=== PATIENT | male | born 1970 | race Caucasian/White ===

== ENCOUNTER 2019-11-28 09:48 | Outpatient (CLI) | payer BC, SELFPAY ==
--- NOTE | 2019-11-28 10:03 | EST_ITS ---
Patient Info Name: Uli Cruz Age: 49 years : 1970 Gender: Male Ht: 71 in Wt: 205 lbs BSA: 2.18 m2 Technical Quality: Good Exam Date: 11/28/2019 11:05 AM [facility] Patient Status: Outpatient Admit Date: 11/28/2019 Staff Ordering Physician: Gunjan Lopez Building Illuminating Engineer: Eli Reyes RDCS Attending Provider: GILDA CHIN DO Referring Physician: John NEVILLE; Exercise Technologist: Netta Mancilla RDCS Exercise Physician: Gilda Chin DO Exam Type: CA stress echo Study Info Indications - fatique Treadmill exercise stress echocardiogram is performed. Summary 1. 1. Negative Poncho exercise stress test for ischemic ST changes by ECG criteria. 2. 2. Good functional capacity, achieving 12 METs of workload. 3. 3. Appropriate HR response to exercise. 4. 4. Appropriate HR recovery at 1 minute post exercise. 5. 5. Negative stress echocardiogram for ischemia by wall motion analysis. 6. 6. Patient informed of the above results. Stress Echo Findings Left Ventricle Appropriate increase in LV endocardial thickening with systole. Appropriate augmentation of contractility with systole. No wall motion abnormality. Left Ventricle Normal LV systolic function, no wall motion abnormality. Protocol: Poncho Stress ECG Details Stage: REST Duration (min): 6 min : 9 sec Speed (mph): 0.0 Grade (%): 0 HR (bpm): 65 SBP (mmHg): 112 DBP (mmHg): 85 METS: --- Stage: REST Duration (min): 26 min : 48 sec Speed (mph): 0.0 Grade (%): 0 HR (bpm): 77 SBP (mmHg): 112 DBP (mmHg): 85 METS: --- Stage: STAGE 1 Duration (min): 1 min : 0 sec Speed (mph): 1.7 Grade (%): 10 HR (bpm): 94 SBP (mmHg): 112 DBP (mmHg): 85 METS: --- Stage: STAGE 1 Duration (min): 2 min : 0 sec Speed (mph): 1.7 Grade (%): 10 HR (bpm): 95 SBP (mmHg): 112 DBP (mmHg): 85 METS: --- Stage: STAGE 1 Duration (min): 3 min : 0 sec Speed (mph): 1.7 Grade (%): 10 HR (bpm): 94 SBP (mmHg): 135 DBP (mmHg): 77 METS: --- Stage: STAGE 2 Duration (min): 1 min : 0 sec Speed (mph): 2.5 Grade (%): 12 HR (bpm): 106 SBP (mmHg): 135 DBP (mmHg): 77 METS: --- Stage: STAGE 2 Duration (min): 2 min : 0 sec Speed (mph): 2.5 Grade (%): 12 HR (bpm): 110 SBP (mmHg): 156 DBP (mmHg): 77 METS: --- Stage: STAGE 2 Duration (min): 3 min : 0 sec Speed (mph): 2.5 Grade (%): 12 HR (bpm): 110 SBP (mmHg): 156 DBP (mmHg): 77 METS: --- Stage: STAGE 3 Duration (min): 1 min : 0 sec Speed (mph): 3.4 Grade (%): 14 HR (bpm): 124 SBP (mmHg): 140 DBP (mmHg): 86 METS: --- Stage: STAGE 3 Duration (min): 2 min : 0 sec Speed (mph): 3.4 Grade (%): 14 HR (bpm): 128 SBP (mmHg): 140 DBP (mmHg): 86 METS: --- Stage: STAGE 3 Duration (min): 3 min : 0 sec Speed (mph): 3.4 Grade (%): 14
== END 2019-11-28 09:49 | disposition home or self-care (01) ==
LOC: ANHCARD 09:51
PROVIDERS: PCP Internal Medicine; Visit Provider Nurse Practitioner
DX: R53.83 Other fatigue (principal)
CPT/HCPCS: 93351

== ENCOUNTER → 2020-08-20 00:52 | Outpatient (CLI) | payer BC, SELFPAY ==
[2020-08-20 21:02] LABS: SARS-CoV-2 RNA PCR Negative
== END ==
PROVIDERS: PCP Internal Medicine; Visit Provider Internal Medicine Gastroenterology
DX: Z01.812 Encounter for preprocedural laboratory examination (principal); Z20.822 Contact with and (suspected) exposure to COVID-19
CPT/HCPCS: C9803; U0003; U0005

== ENCOUNTER 2021-09-27 09:10 | Outpatient (CLI) | payer BC, SELFPAY ==
[2021-09-27 10:09] LABS: Alanine Aminotransferase 34 U/L (6-50); Albumin Level 5.1 g/dL (3.5-5.1); Alkaline Phosphatase 60 U/L (38-126); Anion Gap 10 mmol/L (8-16); Aspartate Amino Transferase 36 U/L (17-59); Blood Urea Nitrogen 16 mg/dL (9-20); Carbon Dioxide 25 mmol/L (22-30); Chloride 104 mmol/L (98-107); Cholesterol 224 mg/dL (0-200); Estimated Glomerular Filt Rate > 60; Glucose 99 mg/dL (65-110); HDL Direct 83 mg/dL; Sodium 139 mmol/L (137-145); Triglycerides 96 mg/dL (<150)
[2021-09-27 10:23] LABS: LDL Cholesterol Direct 103 mg/dL
[2021-09-27 10:40] LABS: Prostate Specific Antigen 0.7 ng/mL (< OR = 4.0)
[2021-09-30 10:16] LABS: Testosterone Total 271 ng/dL (250-1100)
== END 2021-09-27 09:11 | disposition home or self-care (01) ==
PROVIDERS: PCP Internal Medicine; Visit Provider Internal Medicine
DX: Z12.5 Encounter for screening for malignant neoplasm of prostate (principal); Z13.6 Encounter for screening for cardiovascular disorders; Z79.899 Other long term (current) drug therapy
CPT/HCPCS: 36415; 80053; 80061; 84153; 84403; G0103

== ENCOUNTER 2021-10-19 01:31 | Day surgery (SDC) | payer BC, SELFPAY ==
[2021-10-13 09:55] VITALS: BMI 29.2
[2021-10-19 06:21] VITALS: BP 114/80; PULSE 88; RESP 18; TEMP 36.5; O2SAT 98
[2021-10-19] MEDS: LACTATED RINGERS 1,000 ML 150 ML IV CONT (06:31)
--- NOTE | 2021-10-19 07:16 | WPDANESEPPF ---
Anes - Initial Pre Proc Eval Procedure: Operation Date: 10/19/21 07:30 Proposed Procedures p Screening Colonoscopy - Lucio Corona MD Date/Time: 10/19/21 07:16 Surgeon: Lucio Corona MD Pre Op Diagnosis: neoplasm screening Patient Data Age: 50 Gender: M Height: 1.8 m Weight: 94.2 kg Last Vital Signs Temp 36.5 C 10/19/21 06:21 Pulse 88 10/19/21 06:21 Resp 18 10/19/21 06:21 BP 114/80 10/19/21 06:21 Pulse Ox 98 10/19/21 06:21 O2 Del Method Room Air 10/19/21 06:21 Allergies Allergy/AdvReac Type Severity Reaction Status Date / Time No Known Allergies Allergy Verified 10/19/21 06:19 Home Medications Medication Instructions Recorded Confirmed Type bupropion HCl 300 mg 24 hr tablet, See Rx Instructions .Route 09/28/21 10/13/21 Rx extended release .COMPLEX #90 tabs naltrexone 50 mg tablet 50 mg PO DAILY #90 tabs 09/28/21 10/13/21 Rx testosterone cypionate 200 mg/mL 100 mg (0.5 mL) IM WEEKLY #10 mL 09/29/21 10/13/21 Rx intramuscular oil Patient hx anesthesia problems: none Family hx anesthesia problems: none Results Review: All pre-operative results and documents have been reviewed as part of the pre-operative evaluation. [facility] Past Medical History Medical History (Reviewed 09/28/21 @ 07:50 by Ramin Candelario [facility]) Acute pharyngitis Arthritis Biceps tendinitis Cyst of neck Depression Erectile dysfunction Erectile dysfunction Hearing loss Joint pain Left elbow pain On ferry terminal agent drug therapy On alf drug therapy Rash Screening for cardiovascular condition Sebaceous cyst Testicular hypofunction Surgical History Surgical History Hx of arthroscopy of knee Family History Family History Father Family history of heart disease in male family member before age 55 Other Arthritis Social History Social History Smoking status: Never smoker Alcohol intake: current Drinks per week: 6 Alcohol use details: Occasional Substance use: never Substance use type: does not use Living arrangements: alone Spiritual care concerns: No Anes - Eval Final PreProcedure Day of Procedure 10/19/21 07:16 Patient weight: overweight Heart: regular rate and rhythm Lungs: clear to auscultation and normal air movement Airway: Mallampati scale class II Neurological: alert and oriented Last oral intake: >/= 8 hours ASA classification: II Emergent: no Anesthetic plan: proceed Anesthesia type and monitoring: general GIVS Results Review: All pre-operative results and documents have been reviewed as part of the pre-operative evaluation. Informed Consent: The patient's anesthetic plan and its attendant risks and benefits were discussed with the patient/family/POA. Questions were solicited and answers provided to the satisfaction of the patient/family/POA.
--- NOTE | 2021-10-19 07:28 | PM.HPGS ---
History of Present Illness History of Present Illness Consent: Risks, benefits, and alternatives have been discussed and questions answered. Patient agrees to proceed with procedure. Chief complaint: neoplasm screening Narrative: Uli Cruz is a 50 year old male here for first screening colonoscopy Review of Systems Constitutional: Constitutional: Denies headache(s) and Denies weakness Eyes: Eyes: Denies blurry vision ENT: Reports Normal hearing present, Denies headache(s) and Denies neck pain Cardiovascular: Cardiovascular: Denies chest pain and Denies dyspnea Respiratory: Respiratory: Denies dyspnea Gastrointestinal: Gastrointestinal: Reports no additional gastrointestinal complaints Genitourinary: Genitourinary: Denies dysuria Musculoskeletal: Musculoskeletal: Denies neck pain Integumentary/Breasts: Skin/Breast: Denies dry skin Neurologic: Reports Normal hearing present, Denies headache(s) and Denies weakness Psychiatric: Psychiatric: Denies anxiety Endocrine: Endocrine: Denies change in body appearance Hematologic/Lymphatic: Hematologic/Lymphatic: Denies easy bleeding Allergic/Immunologic: Allergic/Immunologic: Denies urticaria PMFSH Past Medical History Medical History Acute pharyngitis Arthritis Biceps tendinitis Cyst of neck Depression Erectile dysfunction Erectile dysfunction Hearing loss Joint pain Left elbow pain On exterminator termite drug therapy On assisted drug therapy Rash Screening for cardiovascular condition Sebaceous cyst Testicular hypofunction Surgical History Surgical History Hx of arthroscopy of knee Family History Family History Father Family history of heart disease in male family member before age 55 Other Arthritis Social History Social History Smoking status: Never smoker Alcohol intake: current Drinks per week: 6 Alcohol use details: Occasional Substance use: never Substance use type: does not use Living arrangements: alone Spiritual care concerns: No Meds Home Medications and Allergies Home Medications Medication Instructions Recorded Confirmed Type bupropion HCl 300 mg 24 hr tablet, See Rx Instructions .Route 09/28/21 10/13/21 Rx extended release .COMPLEX #90 tabs naltrexone 50 mg tablet 50 mg PO DAILY #90 tabs 09/28/21 10/13/21 Rx testosterone cypionate 200 mg/mL 100 mg (0.5 mL) IM WEEKLY #10 mL 09/29/21 10/13/21 Rx intramuscular oil Allergies Allergy/AdvReac Type Severity Reaction Status Date / Time No Known Allergies Allergy Verified 10/19/21 06:19 Vital Signs Vital Signs - 24 hr 10/19/21 06:21 Temperature 97.7 F Pulse Rate 88 Respiratory Rate 18 Blood Pressure 114/80 Pulse Oximetry 98 Oxygen Delivery Room Air Exam Const: General: comfortable and no acute distress HENMT: General nose exam: Normal nares present Eyes: General: appearance normal, both eyes and all related structures Neck: Neck: no JVD Resp: Auscultation: clear to auscultation bilaterally Cardio: Rate: regular rate Rhythm: regular rhythm GI: Inspection: non-distended GI Palp: Yes Soft to palpation Skin: General skin exam: normal color Neuro: General: gait normal Speech: normal speech Extrem: General: normal to inspection Psych: Mental Status: mental status grossly normal Assessment and Plan Assessment and plan (1) Screening for colon cancer: Code(s): Z12.11 - Encounter for screening for malignant neoplasm of colon Status: Acute Assessment and Plan: colonoscopy
[2021-10-19 07:52] VITALS: BP 105/61; PULSE 74; RESP 18; O2SAT 98
[2021-10-19 08:02] VITALS: BP 111/78; PULSE 79; RESP 15; O2SAT 98
[2021-10-19 08:12] VITALS: BP 118/82; PULSE 72; RESP 23; O2SAT 99
== END 2021-10-19 08:24 | disposition home or self-care (01) ==
PROVIDERS: PCP Internal Medicine; Visit Provider Internal Medicine Gastroenterology
PROC: 0DJD8ZZ Inspection of Lower Intestinal Tract, Via Natural or Artificial Opening Endoscopic (ICD-10-PCS; CPT 45378; principal; 2021-10-19 07:30)
DX: Z12.11 Encounter for screening for malignant neoplasm of colon (principal); D12.5 Benign neoplasm of sigmoid colon; K63.5 Polyp of colon; K57.30 Diverticulosis of large intestine without perforation or abscess without bleeding; K64.8 Other hemorrhoids; F32.A Depression, unspecified; N52.9 Male erectile dysfunction, unspecified; E29.1 Testicular hypofunction
CPT/HCPCS: 45385; 88305; J2001; J2704; J7120

== ENCOUNTER 2023-06-06 06:06 | Emergency (ER) | payer BC, SELFPAY ==
--- NOTE | ~2023-06-06 | XR_ITS ---
Clinical Indication: Chest pain PA and lateral views of the chest: Comparison: None Findings: The lungs are clear, without evidence of focal consolidation or pleural effusion. Probable mildly prominent central pulmonary vessels, less likely hilar adenopathy. Cardiomediastinal silhouett e is otherwise within normal limits. Bones and soft tissues are unremarkable. Impression: Clear lungs. Probable mildly prominent central pulmonary vessels, less likely hilar adenopathy. Consider chest CT to further evaluate, as indicated. Reviewed, dictated and finalized at location . [employer]INKL[employer]PARATUS INSPECTOR Impression: Clear lungs. Probable mildly prominent central pulmonary vessels, less likely hilar adenopat hy. Consider chest CT to further evaluate, as indicated.
[2023-06-06 06:06] VITALS: BP 151/99; PULSE 70; RESP 16; TEMP 37; O2SAT 100
--- NOTE | 2023-06-06 06:14 | ECG_ITS ---
Measurements Intervals [place] Rate: 65 P: 68 CA: 162 QRS: 5 QRSD: 122 T: 57 QT: 379 QTc: 395 Interpretive Statements SINUS RHYTHM MODERATE INTRAVENTRICULAR CONDUCTION DELAY [110+ ms QRS DURATION] NO PREVIOUS ECG AVAILABLE FOR COMPARISON Electronically Signed On 06-06-2023 15:23:08 SURGICAL AIDES TEACHER by [place] M.D.
[2023-06-06 06:36] VITALS: PULSE 73
[2023-06-06 06:37] LABS: Basophils Absolute Auto 0.1 K/mm3 (0.0-0.1); Basophils Percent Auto 0.7 % (0.2-1.2); Eosinophils Absolute Auto 0.2 K/mm3 (0-0.3); Eosinophils Percent Auto 2.7 % (0-4.4); Hematocrit 45.8 % (42.0-52.0); Hemoglobin 15.8 g/dL (14.0-18.0); Immature Granulocyte Absolute 0.02 K/mm3 (0.00-0.031); Immature Granulocyte Percent A 0.3 % (0-0.5); Lymphocytes Absolute Auto 1.97 K/mm3 (0.9-3.2); Lymphocytes Percent Auto 29.3 % (18.3-44.2); Mean Corpuscular HGB Conc 34.5 g/dl (32-36); Mean Corpuscular Hemoglobin 33.3 pg (26-34); Mean Corpuscular Volume 96.4 fl (80-100); Mean Platelet Volume 8.7 fl (7.4-10.4); Monocytes Absolute Auto 0.9 K/mm3 (0.1-0.6); Monocytes Percent Auto 13.1 % (2.6-8.5); Neutrophils Absolute Auto 3.6 K/mm3 (1.3-6.7); Neutrophils Percent Auto 53.9 % (45.5-73.1); Platelet Count Result 285 k/mm3 (150-375); Red Blood Count 4.75 M/mm3 (4.6-6.20); Red Cell Distribution Width 12.7 % (11.5-14.5); White Blood Count 6.7 K/mm3 (4.5-10.0)
[2023-06-06 06:49] LABS: INR 0.9; Partial Thromboplastin Time 30.5 SECONDS (22.3-36.8); Prothrombin Time 12.5 Seconds (11.1-14.7)
[2023-06-06 06:52] LABS: Alanine Aminotransferase 31 U/L (6-50); Albumin Level 4.9 g/dL (3.5-5.1); Alkaline Phosphatase 79 U/L (38-126); Anion Gap 6 mmol/L (8-16); Aspartate Amino Transferase 39 U/L (17-59); Bilirubin,Total 0.8 mg/dL (0.2-1.3); Blood Urea Nitrogen 16 mg/dL (9-20); Calcium 12.5 mg/dL (8.4-10.2); Carbon Dioxide 30 mmol/L (22-30); Chloride 101 mmol/L (98-107); Estimated CRCL calculation 99 ml/min; Estimated Glomerular Filt Rate > 60; Glucose 114 mg/dL (65-110); Lipase 70 U/L (23-300); Potassium 3.9 mmol/L (3.4-5.0); Sodium 137 mmol/L (137-145)
[2023-06-06 07:03] LABS: Troponin I < 0.012 ng/mL (0.000-0.034)
[2023-06-06 07:36] VITALS: O2SAT 98
--- NOTE | 2023-06-06 07:37 | ED.CHESTPAIN ---
HPI - Chest Pain General Chief Complaint: Chest Pain Stated Complaint: chest pain Time Seen by Provider: 06/06/23 07:00 Source: patient Limitations: no limitations History of Present Illness HPI narrative: Patient is a 52-year-old male presents to the emergency department complaining of chest pain. Patient states he woke up around 2:00 a.m. with chest discomfort, right-sided, burning, states heartburn , denies radiation of the discomfort, as it is constant, took an [id number] analgesic in addition to Tums Pepcid. Patient denies nausea, vomiting, difficulty breathing, cough, recent injuries, recent illness, numbness, weakness, fever, bloody bowel movements, urinary discomfort, rash, new or change medications, history of heart disease, history of cholesterol abnormalities or high blood pressure or diabetes. Patient denies family history of early heart disease. Patient denies seeing a gun tester in the past her upper having an EGD. Patient admits to taking NSAID for the past couple weeks. Patient denies alcohol use or illicit drug use. Patient denies history of blood clots or unilateral lower extremity swelling. Patient states that he had some coarse redness last night before going to bed which he thinks might be associated. Related Data Allergies Allergy/AdvReac Type Severity Reaction Status Date / Time No Known Allergies Allergy Verified 06/06/23 07:38 Review of Systems Review of Systems: A 10 system review of systems was completed on the patient and is negative except for what is stated in the HPI. Nursing and ancillary documentation was reviewed. 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 Rash Screening for cardiovascular condition Sebaceous cyst Testicular hypofunction Surgical History Surgical History Hx of arthroscopy of knee Family History Family History Father Family history of heart disease in male family member before age 55 Other Arthritis Social History Social History Smoking status: Never smoker Alcohol intake: current Drinks per week: 5 Alcohol use details: Occasional Substance use: never Substance use type: does not use Lack of Transportation: No Lack of Food: Never True Current Housing: I Have Housing Concerned About Future Housing: No Difficulty Paying Gas/Electric Bills: No Difficulty Paying for Meds: No Currently Unemployed: No Education: Associate Degree Difficulty w/ Childcare or Family Care: No Living arrangements: alone Spiritual care concerns: No Comments At time of signature, I have reviewed and agree with nursing past medical, surgical, social and family history unless otherwise noted. Please see the nursing chart for further information. There is no relevant family history pertinent to the presenting complaint. Exam Narrative: CONST: No acute distress. Well nourished. HENMT: Head is normocephalic and atraumatic. Moist mucous membranes. No posterior oropharynx erythema. EYES: No conjunctival icterus, injection, or pallor. PERRL. NECK: No meningeal signs. RESP: Able to speak in full sentences. Normal respiratory effort. CTAB. CARDIO: Regular rate. Regular rhythm. 2+ DP and radial pulses bilaterally. GI: Nondistended. No tenderness to palpation. Soft. : No CVA tenderness to palpation. SKIN: No rashes or lesions noted on exposed skin. NEURO: Oriented x3. Moves all extremities. EXTREM/MSK/BACK: No pedal edema. PSYCH: Normal affect. Course Vital Signs Vital signs: Vital Si
[2023-06-06] MEDS: FAMOTIDINE 20 MG/2 ML VIAL IV PUSH (07:45)
[2023-06-06] MEDS: MAG HYDROX/AL HYDROX/SIMETH 30 ML UDC PO (07:46)
[2023-06-06 07:51] VITALS: BP 142/100; PULSE 69; RESP 13; O2SAT 98
[2023-06-06 08:19] LABS: NT Pro B Type Natriuretic Pept < 20 pg/mL (19.9-100)
[2023-06-06 08:26] LABS: D Dimer < 0.27 ug/mL (<0.48)
== END 2023-06-06 09:03 | disposition home or self-care (01) ==
PROVIDERS: Emergency Medicine; Emergency Provider Student in an Organized Health Care Education/Training Program; PCP Nurse Practitioner
DX: R12 Heartburn (principal); Z79.1 Long term (current) use of non-steroidal anti-inflammatories (NSAID)
CPT/HCPCS: 36415; 71046; 80053; 83690; 83880; 84484; 85025; 85380; 85610; 85730; 93005; 96374; 99284; A9270

== ENCOUNTER 2023-06-26 07:30 | Outpatient (RCR) | payer BC, SELFPAY ==
--- NOTE | 2023-05-08 10:20 | PTOPEVDC ---
Assessment and note entered by Sintia Lancaster DPT Thank you for referring Uli Cruz to [facility].? An evaluation has been completed. No further treatment is needed. Evaluation Information Assessment Status Discharge Subjective Information Pt reports L elbow pain and some pain in his shoulders and right elbow as well. Highest pain recently 2/10 and lowest 0/10. Denies n/t or neck pain. Pain increases with lifting drywall or other heavy material. 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 Pt is R hand dominant . Independent with all activities at home. Return to MD not scheduled. Patient goal: full use of left arm Reported Pain Level Pain Score 1: Self Report Assessment PT Clinical Summary The patient is presenting to skilled therapy with reports of ongoing L elbow pain and tenderness with palpation of distal biceps tendon. Due to location of his plan, patient would most benefit from skilled CHT services and have already contacted provider for an OT order. Patient will follow up with OT going forward. Plan of Care PT Services Indicated No Treatment Frequency and - Duration
--- NOTE | 2023-05-11 09:29 | OTOPEVAL1 ---
Assessment and note entered by YASHIRA Epps/Darin, CHT Evaluation Information Assessment Status Evaluation Diagnosis Bicipital tendinitis Subjective Information Patient presenting today reporting left elbow pain , which has been going on for years . 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 His pain is consistently 1/10 and gets worse at night when sleeping with bent elbows and wrists. Gets sharply worse with heavy lifting , like when trying to carry a sheet of drywall, he is unable to carry with the left. 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 He is right handed. Also reporting bilateral shoulder pain anteriorly. Assessment OT Clinical Summary Patient referred to OT with bilateral bicipital tendonitis as well as signs and symptoms of left elbow medial and lateral epicondylitis. Educated patient on HEP for managing pain and reducing inflammation. He will benefit for continued follow up to progress HEP to include postural exercises and strengthening, for continued use of modalities , as well as manual therapy to promote reduced pain and improved UE use for ADLs and work tasks. Plan of Care Interventions Therapeutic Exercise,Manual Therapy,Neuro Re- education,Therapeutic Activities,Hot Pack/Cold Pack,Ultrasound,Paraffin OT Services Indicated Yes Treatment Frequency and 1x/week for 4 weeks Duration These treatments will address the objective and functional deficits as defined above. The patient will be advanced safely and appropriately in order for the patient to progress towards his/her prior level of function. Additional exercises will be introduced and as well as a comprehensive home exercise program upon discharge, if needed, ?to ensure carryover of functional gains achieved in the clinic. This treatment plan has been reviewed and agreement upon by the patient.
--- NOTE | 2023-06-08 10:20 | OTOPPROG ---
Assessment and note entered by Varghese Jackson, YASHIRA/Darin, CHT Evaluation Information Assessment Status Progress Diagnosis Bicipital tendinitis Subjective Information Patient presenting today reporting left elbow pain , which has been going on for years . Bilateral shoulder pain. He reports he feels like he's making progress, but he's definitely not better . Continues to have left elbow pain when working and shoulder pain when sleeping in particular positions. His pain is consistently 1-2/10 and gets worse at night when sleeping with bent elbows and wrists. We discussed benefits of a cortisone injection for the elbow. Assessment OT Clinical Summary Patient referred to OT with bilateral bicipital tendonitis as well as signs and symptoms of left elbow medial and lateral epicondylitis. Patient is making some progress, but overall due to the nature of his job, he continues to repetitively strain these areas. Continued skilled OT indicated for therapeutic exercises, stretching, strengthening, manual therapy, and use of modalities to treat pain and improve functional UE use. Plan of Care Interventions Therapeutic Exercise,Manual Therapy,Neuro Re- education,Therapeutic Activities,Hot Pack/Cold Pack,Ultrasound,Paraffin OT Services Indicated Yes Treatment Frequency and 2x/week for 8 visits Duration These treatments will address the objective and functional deficits as defined above. The patient will be advanced safely and appropriately in order for the patient to progress towards his/her prior level of function. Additional exercises will be introduced and as well as a comprehensive home exercise program upon discharge, if needed, ?to ensure carryover of functional gains achieved in the clinic. This treatment plan has been reviewed and agreement upon by the patient.
== END 2023-06-27 14:31 | disposition home or self-care (01) ==
LOC: ANHOT 07:30
PROVIDERS: PCP Nurse Practitioner; Visit Provider Nurse Practitioner
DX: M75.20 Bicipital tendinitis, unspecified shoulder (principal)
CPT/HCPCS: 97018; 97035; 97110; 97140; 97161; 97165

== ENCOUNTER 2023-09-21 08:00 | Outpatient (RCR) | payer BC, SELFPAY ==
--- NOTE | 2023-07-02 09:11 | PCOTNOTE ---
The treatment documented on this account is a continuation of the treatment documented on visit number [id number]. Please see documentation on both accounts to view progress. The Plan of Care has been transitioned and updated within the new V#. I have addressed and agree with the discipline specific Problems, Interventions, and Goals for the current certification period. Completed interventions, outcomes, and problems have been marked as Inactive to facilitate the copying of the Care plan routine for recurring accounts.
--- NOTE | 2023-07-19 07:33 | PCOTNOTE ---
Patient called & cancelled scheduled appointment this date due to going [facility].
--- NOTE | 2023-07-23 08:35 | OTOPPROG ---
Assessment and note entered by YASHIRA Epps/Darin, CHT Progress Update 07/23/23 Diagnosis Bicipital tendonitis, left elbow medial epicondylitis Subjective Information Patient reporting the left elbow is making great progress, having no pain when waking up, lower amounts of pain throughout the work day. Noticing he isn't favoring the right arm as much with lifting/carrying tasks. The shoulders continue to be painful, especially at night and when lifting overhead. He admits to focusing a lot on his elbow HEP and not being as diligent with the shoulder HEP. Assessment OT Clinical Summary Patient is progressing with reduced pain, improved flexibility, and improved strength, which is carrying over into improved functional UE use for ADLs and lifting/work tasks. He continues to have residual pain, soft tissue tightness, and decreased postural alignment which is repetitively affecting the anterior shoulder/bicipital tendons. Continued skilled OT indicated for HEP progression, continued use of modalities, manual therapy, and progressive strengthening to facilitate improved functional strength, posture, and reduced pain during ADLs and work tasks. Plan of Care Interventions Therapeutic Exercise,Manual Therapy,Neuro Re- education,Therapeutic Activities,Hot Pack/Cold Pack,Ultrasound,Paraffin OT Services Indicated Yes Treatment Frequency and 2x/week for 8 visits Duration These treatments will address the objective and functional deficits as defined above. The patient will be advanced safely and appropriately in order for the patient to progress towards his/her prior level of function. Additional exercises will be introduced and as well as a comprehensive home exercise program upon discharge, if needed, ?to ensure carryover of functional gains achieved in the clinic. This treatment plan has been reviewed and agreement upon by the patient.
--- NOTE | 2023-07-23 10:40 | OPREHPOC ---
Outpatient Therapy Plan of Care This is a Multidisciplinary Plan of Care that may contain components documented by all disciplines (PT, OT, and ST.) OT Problem 1 OT Problem #1 Knowledge Deficit OT Goal 1 Goal 1. Patient to be independent with instructed materials. ---OT POC UPDATE 06/08/23--- 1. Met, continue ---OT POC UPDATE 07/23/23--- 1. Met, continue Target Visit 18 OT Problem 2 OT Problem #2 Pain OT Goal 1 Goal 1. Patient to report reduced elbow pain to 0/10 throughout the day/with use. ---OT POC UPDATE 06/08/23--- 1. Not met, continue to treat pain ---OT POC UPDATE 07/23/23--- 1. Progressing, continue New pain goal: 1. Patient to progress to 2/10 or less bilateral shoulder pain throughout his work day. Target Visit 18 OT Problem 3 OT Problem #3 Impaired Strength OT Goal 1 Goal 1. Patient to be independent with postural HEP to reduce bicipital tendon strain. 2. Patient to be able to complete left wrist strengthening with 2 lb. free weight x20 reps without pain. ---OT POC UPDATE 06/08/23--- 1. Met 2. Not met, continue ---OT POC UPDATE 07/23/23--- 1. Met, continue as HEP is progressed 2. Met Target Visit 18
--- NOTE | 2023-08-20 09:05 | OTOPPROG ---
Assessment and note entered by Varghese Jackson, YASHIRA/Darin, T Progress Update 08/20/23 Assessment Status Progress Diagnosis Bicipital tendonitis, left elbow medial epicondylitis Subjective Information - Patient reporting the left elbow is making great progress, having no pain on a regular basis, still working on building strength here as he notices the strength discrepancy compared to the right arm. - He continues to experience bilateral shoulder pain. He reports the pain has shifted from the anterior shoulder to the top of his shoulder now. He reports he wakes up with bilateral shoulder pain, rated at 4/10. This is when it's the worst. Throughout the day his shoulders are steady 2/10. Overall this has improved from 4/10 throughout the day and 8/10 at worst . He is working on postural HEP and rotator cuff strengthening. Assessment OT Clinical Summary Uli presents today for therapy progress assessment. Patient continues to progress with reduced pain, improved flexibility, and improved strength, which is carrying over into improved functional UE use for ADLs and lifting/work tasks. He continues to have residual pain, rotator cuff weakness, and decreased postural alignment which is repetitively affecting the anterior shoulder/ bicipital tendons. Continued skilled OT indicated for HEP progression, continued use of modalities, manual therapy, and progressive strengthening to facilitate improved functional strength, posture, and reduced pain during ADLs and work tasks. Plan of Care Interventions Therapeutic Exercise,Manual Therapy,Neuro Re- education,Therapeutic Activities,Hot Pack/Cold Pack,Ultrasound,Paraffin OT Services Indicated Yes Treatment Frequency and 2x/week for 6 visits Duration These treatments will address the objective and functional deficits as defined above. The patient will be advanced safely and appropriately in order for the patient to progress towards his/her prior level of function. Additional exercises will be introduced and as well as a comprehensive home exercise program upon discharge, if needed, ?to ensure carryover of functional gains achieved in the clinic. This treatment plan has been reviewed and agreement upon by the patient.
--- NOTE | 2023-08-20 09:05 | OPREHPOC ---
Outpatient Therapy Plan of Care This is a Multidisciplinary Plan of Care that may contain components documented by all disciplines (PT, OT, and ST.) OT Problem 1 OT Problem #1 Knowledge Deficit OT Goal 1 Goal 1. Patient to be independent with instructed materials. ---OT POC UPDATE 06/08/23--- 1. Met, continue ---OT POC UPDATE 07/23/23--- 1. Met, continue ---OT POC UPDATE 08/20/23--- 1. Met, continue Target Visit 27 OT Problem 2 OT Problem #2 Pain OT Goal 1 Goal 1. Patient to report reduced elbow pain to 0/10 throughout the day/with use. ---OT POC UPDATE 06/08/23--- 1. Not met, continue to treat pain ---OT POC UPDATE 07/23/23--- 1. Progressing, continue New pain goal: 1. Patient to progress to 2/10 or less bilateral shoulder pain throughout his work day. ---OT POC UPDATE 08/20/23--- 1. Met, update goal - Patient to wake up with pain less than 2/10 in the morning. Target Visit 27 OT Problem 3 OT Problem #3 Impaired Strength OT Goal 1 Goal 1. Patient to be independent with postural HEP to reduce bicipital tendon strain. 2. Patient to be able to complete left wrist strengthening with 2 lb. free weight x20 reps without pain. ---OT POC UPDATE 06/08/23--- 1. Met 2. Not met, continue ---OT POC UPDATE 07/23/23--- 1. Met, continue as HEP is progressed 2. Met ---OT POC UPDATE 08/20/23--- 1. Upgrade goal - Patient to have no shoulder pain with strengthening HEP with blue t-band. 2. Met Target Visit 27
--- NOTE | 2023-09-21 08:43 | OTOPDC ---
Assessment and note entered by Varghese Jackson, OTR/L, JENARO OT D/C 09/21/23 Assessment Status Discharge Diagnosis Bicipital tendonitis Subjective Information Patient reporting progress with bilateral shoulder pain. He reports experiencing some days without pain. 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 He has improved to 2-3/10 at worst , compared to still getting up to 8/10 some days. He is happy with his progress this month. Assessment OT Clinical Summary Uli participated in 25 treatment sessions focused on reducing UE pain, improving functional posture , and strengthening the shoulders, rotator cuff muscles, and overall upper back/thoracic mobility. He reports the past month he has noticed the most progress, experiencing some days of no pain for the first time in a long time. He reports he is more cognizant of his posture and has been incorporating stretches throughout his work day. At this time he is independent with all materials and is ready for discharge from therapy services. No further skilled OT indicated at this time. Plan of Care OT Services Indicated No
== END 2023-09-21 09:53 | disposition home or self-care (01) ==
LOC: ANHOT 08:00
PROVIDERS: PCP Nurse Practitioner; Visit Provider Nurse Practitioner
DX: M75.20 Bicipital tendinitis, unspecified shoulder (principal)
CPT/HCPCS: 97110; 97140

== ENCOUNTER 2024-06-13 00:52 | Day surgery (SDC) | payer BC, SELFPAY ==
--- NOTE | 2024-05-29 14:45 | PC.NURSE ---
Report to the Outpatient Waiting Room, entrance under the green pavilion located off [facility], at time ___[id number]____ on date ___[id number]____. Planned Procedure Time: .? Time changes happen often and if your time is changed the preop area will call you the afternoon before. - You and your visitor will be asked to self-screen and do not enter if you have any COVID symptoms. Please call surgeon if you need to reschedule. - A mask is optional within the hospital at this time. Patients may have clear liquids (water, carbonated beverages, clear teas, apple juice) until 3 hours prior to surgery with a maximum of 20 ounces. (Patient states he fasts in am) - No food from midnight until time of surgery and no smoking. This includes no chewing gum, candy or mints. - Take only the following medications with a SIP of water on the morning of surgery: Buproprion Please no make-up, nail cape verdean, hairspray, perfume, deodorant, or body powder the day of surgery.? No jewelry (including any body piercings) or valuables the day of surgery, leave them at home.? Please take a shower or bath the night before, or the morning of, surgery with an antibacterial soap.? Wear comfortable, loose fitting clothing.? - Jewelry must be removed prior to entering the operating room.? Rings and piercings that are not removed may be cut off. - The hospital will not accept responsibility for valuables.? - Please leave all valuables, including medications, at home the day of surgery. - We also recommend that you do not drive, make important decision, drink alcoholic beverages, or take any drugs that were not prescribed by your health care provider for at least 24 hours after your discharge time. Follow any additional instructions given to you from your surgeon. Telephone instructions given to ___patient (Uli) and asked if any additional questions and then verbalized understanding. Patient advised to call surgeon office or pre surgery nurse liaison [phone] if any additional questions.
[2024-05-29 14:53] VITALS: BMI 27.9
[2024-06-13] VITALS (8 sets, daily range): BP systolic 127–145; BP diastolic 81–99; PULSE 76–88; RESP 14–16; TEMP 37.2; O2SAT 98–100; BMI 30.6
--- OUTSIDE RECORDS SUMMARY | 2024-06-13 01:00 | XMS_ITS | Encounter Summary ---
Author Organization [facility] [address] [place] [address] Care Team Providers Care Yardage Caller Name Role Phone Pierre Carrington DO Primary Care Provider [phone] Pierre Carrington DO Unavailable [phone] Reason for Visit * Reason Onset Date Comments Follow-up 11/15/2019 Encounter Details Date Type Department Care Team (Late st Contact Info) Description 11/15/2019 Telephone [facility] [address], [address] [place] [address] Provider, [facility] Follow-up Social History Tobacco Use Types Packs/Day Years Used Date Smoking Tobacco: Never Smokeless Tobacco: Never Alcohol Use Standard Drinks/Week Comments Yes 0 (1 standard drink = 0.6 oz pur e alcohol) Sex and Gender Information Value Date Recorded Sex Assigned at Not on file Gender Identity Not on file Sexual Orientation Not on file COVID-19 Exposure Response Date Recorded In the last month, have you been in contact with someone who was confirmed or suspected to have Coronavirus / COVID-19? No / Unsure 11/15/2019 9:32 AM CDT documented as of this encounter Miscellaneous Notes * Telephone Encounter - Maryana Wheeler - 11/15/2019 11:59 AM CDT Who is calling? Dmitriy If other than self is caller listed on the HIPAA? NO If caller is anyone other than listed above, where are they calling from? [facility] What is the reason for call?DIRECTION DOES MATCH QUANITY Expected Response from the Clinic? CALL BACK documented in this encounter Plan of Treatment Not on file documented as of this encounter Visit Diagnoses Not on filedocumented in this encounter Care Teams Yardage Caller Relationship Specialty Start Date End Date Pierre Carrington DO [address] [place] [address] PCP - General 10/25/21 Pierre Carrington DO [address] [place] [address] PCP - Attributed-[employer] 04/30/22 10/15/22 documented as of this encounter
--- OUTSIDE RECORDS SUMMARY | 2024-06-13 01:00 | XMS_ITS | Patient Health Summary ---
Author Organization [facility] Address [address] [place] [address] Care Team Providers Care Manager Integrity Name Role Phone Pierre Carrington Primary Care Provider [phone] [facility],non-owned Affiliates and Associated Physician Practices is amultiple site organization consisting of ambulatory clinics and hospital sitesin [place], [place], [place] and [place]. This disclosure is being madepursuant to the Care Everywhere program and may not contain all information available regarding this patient. Last updated 18.[facility] Allergies No known active allergies Medications * Be aware that medications may not be up to date on this document. Alwaysverify current medications with the patient. * buPROPion HCl (WELLBUTRIN PO) Social History Tobacco Use Types Packs/Day Years Used Date Smoking Tobacco: Never Smokeless Tobacco: Never Alcohol Use Standard Drinks/Week Comments Yes 0 (1 standard drink = 0.6 oz pur e alcohol) Sex and Gender Information Value Date Recorded Sex Assigned at Not on file Gender Identity Not on file Sexual Orientation Not on file Last Filed Vital Signs Vital Sign Reading Time Taken Comments Blood Pressure 126/80 11/15/2019 11:31 AM CDT Pulse 74 11/15/2019 11:31 AM CDT Temperature 37 C (98.6 F) 11/15/2019 11:31 AM CDT Respiratory Rate 16 11/15/2019 11:31 AM CDT Oxygen Saturation 96% 11/15/2019 11:31 AM CDT Inhaled Oxygen Concentration - - Weight 93.4 kg (206 lb) 11/15/2019 11:31 AM CDT Height 180.3 cm (5' 11 ) 11/15/2019 11:31 AM CDT Body Mass Index 28.73 11/15/2019 11:31 AM CDT Care Teams Manager Integrity Relationship Specialty Start Date End Date Pierre Carrington DO [address] [place] [address] PCP - General 10/25/21
--- OUTSIDE RECORDS SUMMARY | 2024-06-13 01:00 | XMS_ITS | Clinical Summary ---
Author Organization [facility] Address [address] [place] [address] Care Team Providers Care Engineering Equipment Operator Name Role Phone Pierre Carrington DO Primary Care Provider [phone] Source Comments [facility],non-owned Affiliates and Associated Physician Practices is amultiple site organization consisting of ambulatory clinics and hospital sitesin [place], [place], [place] and [place]. This disclosure is being madepursuant to the Care Everywhere program and may not contain all information available regarding this patient. Last updated 18.[facility] Allergies No known active allergies Medications * Be aware that medications may not be up to date on this document. Alwaysverify current medications with the patient. Medication Sig Dispensed Refills Start Date End Date Status buPROPion HCl (WELLBUTRIN PO) Active Social History Tobacco Use Types Packs/Day Years [...] Mass Index 28.73 11/15/2019 11:31 AM CDT Plan of Treatment Health Maintenance Due Date Last Done Comments COLOGUARD (AGES 45-75) - COL ON CA SCREENING 1969 COLON MONITORING 1969 COLONOSCOPY - COLON CA SCREENING 1969 CT COLONOGRAPHY - COLON CA SCREENING 1969 Colorectal Cancer Screening 1969 FIT - COLON CA SCREENING 1969 FLEX SIG - COLON CA SCREENING 1969 LIPID TESTING 1969 HIV SCREENING 1984 HEPATITIS C SCREENING 11/24/1987 DTAP/TDAP/TD VACCINES (1 - Tdap) 1988 HEPATITIS B VACCINE (1 of 3 - 19+ 3-dose series) 1988 SCREENING FOR DIABETES 11/15/2019 PNEUMOCOCCAL VACCINE 50+ (1 of 1 - PCV) 11/29/2019 ZOSTER VACCINE (1 of 2) 11/29/2019 COVID-19 VACCINE (1 - 2023-2 5 season) 2023 INFLUENZA VACCINE (#1) 2023 DEPRESSION SCREENING 04/30/2024 HIB VACCINE Aged Out No longer eligi ble based on patient's age to complete this topic HPV VACCINE Aged Out No longer eligi ble based on patient's age to complete this topic MENINGOCOCCAL (Group B) VACCINE Aged Out No longer eligible based on patient's age to complete this topic MENINGOCOCCAL VACCINE Aged Out No chris tyson eligible based on patient's age to complete this topic PNEUMOCOCCAL VACCINE Aged Out No long er eligible based on patient's age to complete this topic Care Teams Engineering Equipment Operator Relationship Specialty Start Date End Date Pierre Carrington DO [address] [place] [address] [facility] - General 10/25/21
--- OUTSIDE RECORDS SUMMARY | 2024-06-13 01:00 | XMS_ITS | Referral Summary ---
Author Organization [facility] Address [address] [place] [address] Care Team Providers Care Outside Installation Machinist Name Role Phone Pierre Carrington DO Primary Care Provider [phone] Source Comments [facility],non-owned Affiliates and Associated Physician Practices is amultiple site organization consisting of ambulatory clinics and hospital sitesin [place], [place], [place] and [place]. This disclosure is being madepursuant to the Care Everywhere program and may not contain all information available regarding this patient. Last updated 18.[facility] Allergies No known active allergies Medications * [...] 11/15/2019 11:31 AM CDT Plan of Treatment Not on file Care Teams Outside Installation Machinist Relationship Specialty Start Date End Date Pierre Carrington DO [address] [place] [address] PCP - General 10/25/21
--- NOTE | 2024-06-13 07:22 | WPDHPUPDATE1 ---
History and Physical Update Update Date/Time: 06/13/24 07:22 History and Physical has been reviewed, including an updated exam of the patient. There are NO changes in the patient's condition. Risks, benefits, and alternatives have been discussed and questions answered. Patient agrees to proceed with procedure.
[2024-06-13] MEDS: LIDO 1%/EPINEPHRINE 1:100,000 20 ML VIAL 30 ML INFILTRATE (07:23)
[2024-06-13] MEDS: BUPivacaine HCL 0.5% 10 ML AMP 30 ML INFILTRATE (07:24)
--- NOTE | 2024-06-13 08:39 | W.PM.PROC2 ---
Procedure Note - Detailed Date of Procedure 06/13/24 Pre-op Diagnosis Sebaceous back cyst x2 Post-op Diagnosis Same Procedure Performed Excision of left upper back sebaceous cyst with 4.5cm intermediate layered wound closure. Excision of lower midline back sebaceous cyst with 3.5cm intermediate layered wound closure. Surgeon Tavares Alegria MD Anesthesia Local Indications Patient is a 53-year-old gentleman who presented with slowly enlarging cyst on his back. One was located in the left upper back region and the other was located in the midline of the lower back. Both cysts were not infected. Findings The left upper back sebaceous cyst measured [id number]. After excision the intermediate layered wound closure for this cyst was 4.5cm. The lower midline back sebaceous cyst measured [id number] and after excision this incision required a 3.5cm intermediate layered wound closure. The total length of intermediate layered wound closures for both cysts was 8cm. Description of Procedure After informed consent was obtained patient brought to the operating room was placed prone on operating table. The area the left upper back in midline lower back was broke prepped and draped usual sterile fashion. A time-out was then performed correctly identifying the patient as well as procedure to be performed. No IV was started as this was a local anesthetic procedure and so no IV antibiotics was given. 1% lidocaine mixed with 0.5% Marcaine with some epinephrine was injected around both Leonardo's for local anesthetic effect. Once adequate analgesia was confirmed I 1st started by excising out the left upper back sebaceous cyst. A transverse elliptical incision of was made initially and dissection was carried down through the dermis of the skin. Then with sharp scalpel dissection I proceeded to shell out the wall of the cyst from the subcutaneous tissues. The excision was completed utilized electrocautery all the way down to the fascial level. The cyst did not go underneath the fascia. Once the cyst with the attached overlying small ellipse of skin was excised I then measured and the cyst measured 2x2x2 cm. It was sent to pathology for examination. Hemostasis was then achieved in the in wound utilized electrocautery. The incision was then closed with the 4.5cm intermediate layered wound closure. Interrupted 2-0 Vicryl sutures placed in the deep subcutaneous tissues. This followed by layer of interrupted 3-0 Vicryl sutures in the superficial and deep dermal layers of the incision. The skin edges were approximated utilizing a running subcuticular 4-0 Monocryl suture. I then turned my attention to excising out the lower midline back sebaceous cyst. Again same local anesthetic mixture was injected around the super super local anesthetic affect. A vertical elliptical incision was then made in the skin with a scalpel dissection was carried down through the dermis skin with a scalpel. Electrocautery was then used to dissect out the cyst wall completely. Extended down to the fascial level but did not extend below the fascia. Once the cyst was completely excised with the attached ellipse of skin it measured [id number]. It was sent to pathology for examination as well. The incision was closed with a intermediate layered wound closure utilizing 2-0 Vicryl sutures the deeper subcutaneous tissues. Interrupted 3-0 Vicryl sutures were placed in the superficial subcutaneous tissues and the deep dermal layer. The skin edges were approximated utilizing a running subcuticular 4 Monocryl suture. The length of the intermediate layered wound closure was 3.5cm. Both incisions were then cleaned and then skin glue was applied. The patient tolerated the procedure well no complications. All sponges, needles, and instrument counts were correct at the end procedure. EBL was _10__cc. The patient was awakened and taken to recovery in stable and satisfactory condition. Implants None Estimated Blood Loss 10 Drains No Packing No Pathology Yes (Back cyst x2 to pathology) Complications No immediate complications Condition Stable Disposition PACU [facility] Billing Surgery - Charge Forward: Surgery Billing
== END 2024-06-13 08:52 | disposition home or self-care (01) ==
PROVIDERS: PCP Nurse Practitioner; Visit Provider Surgery
PROC: (CPT 11404; principal; 2024-06-13 07:30)
DX: L72.0 Epidermal cyst (principal)
CPT/HCPCS: 11404; 11402; 12034; 88305; A9270; J2004

== ENCOUNTER 2024-07-24 10:14 | Outpatient (CLI) | payer BC, SELFPAY ==
--- NOTE | ~2024-07-24 | XR_ITS ---
XR elbow LT min 3V 07/24/2024 10:26 Indication: Left elbow pain Procedure: 4 views left elbow Comparison: 11/06/2019 Findings: There is osteoarthritis of the left elbow. Prominent spur formation of the coronary process . No fracture or traumatic malalignment. No significant joint effusion. Impression: 1: Moderate osteoarthritis of the left elbow. Reviewed, dictated and finalized at location A. Impression: 1: Moderate osteoarthritis of the left elbow.
--- NOTE | ~2024-07-24 | CT_ITS ---
EXAMINATION: CT abdomen pelvis w con DATE: 07/24/2024 10:39 INDICATION: Right lower quadrant abdominal pain. TECHNIQUE: Computed tomography (CT) of the abdomen and pelvis was performed with 100 mL Omnipaque 350 intravenous contrast. Automated exposure control and iterative reconstruction technique were employe d. The dose-length product was 876.08 mGy-cm. COMPARISON: None. FINDINGS: The visualized portions of the lung bases demonstrate mild atelectasis. There are bilateral posterior diaphragmatic hernias containing fat. No pleural effusion. The heart size is normal. No pe ricardial effusion. The liver, gallbladder, spleen, pancreas, and adrenal glands are normal. There ar e cysts in the kidneys measuring up to 5 mm on the right. The prostate is mildly enlarged. There are no dilated loops of bowel. The appendix is normal. There are no pathologically enlarged lymph nodes. There is no free intraperitoneal fluid. There is an umbilical hernia containing fat. There is moderat e thoracic and lumbar spondylosis. There is mild chronic anterior wedging of T11 vertebral body. IMPRESSION: 1. Umbilical hernia containing fat. Reviewed, dictated and finalized at location A.
== END 2024-07-24 10:15 | disposition home or self-care (01) ==
PROVIDERS: PCP Nurse Practitioner; Visit Provider Nurse Practitioner
DX: K44.9 Diaphragmatic hernia without obstruction or gangrene (principal); M19.022 Primary osteoarthritis, left elbow
CPT/HCPCS: 73080; 74177; Q9967

== ENCOUNTER 2024-09-16 12:40 | Outpatient (CLI) | payer BC, SELFPAY ==
--- NOTE | ~2024-09-16 | MR_ITS ---
EXAMINATION: MR elbow LT wo con DATE: 09/16/2024 13:24 INDICATION: Left elbow pain TECHNIQUE: Magnetic resonance imaging (MRI) of the left elbow was performed without intravenous contr ast. Sequences included coronal, axial, and sagittal PD-weighted FS FSE and coronal, axial, and sagit ada PD-weighted FSE. COMPARISON: None FINDINGS: Osseous/other: Normal alignment. No fracture, osteochondral lesion or pathologic marrow replacing process. There is osteoarthritis at the left elbow most prominent at the radiocapitellar articulation where there is ex tensive full and near full thickness chondral ulceration with underlying cortical irregularity and sanchez barticular cystlike changes at the capitellum. Smaller region of full/near full-thickness chondral ul ceration along the radial head with mild subarticular edema-like signal change along the peripheral r im. Less severe mild partial-thickness cartilage loss with generally smooth chondral surface at the u lnotrochlear and proximal radioulnar articulations. There are small marginal osteophytes in all 3 com partments. Tendons: Triceps, biceps brachii and brachialis tendons are normal. Mild tendinopathy without discrete tear a t the common flexor and extensor tendon wads. Ligaments: The medial and lateral collateral ligament complexes are normal. Cubital tunnel: Cubital tunnel is unremarkable with normal signal and caliber of the ulnar nerve. Fluid: Physiologic amount of fluid the elbow joint. IMPRESSION: 1. Moderate osteoarthritis at the left elbow was prompt at the radiocapitellar articulation where the re is high-grade chondromalacia. 2. Mild tendinopathy without discrete tear at the medial and lateral epicondylar origins of the commo n flexor and extensor tendon wads respectively. Reviewed, dictated and finalized at location A. IMPRESSION: 1. Moderate osteoarthritis at the left elbow was prompt at the radiocapitellar articulation where there is high-grade chondromalacia. 2. Mild tendinopathy without discrete tear at the medial and lateral epicondyla r origins of the common flexor and extensor tendon wads respectively.
== END 2024-09-16 12:41 | disposition home or self-care (01) ==
PROVIDERS: PCP Nurse Practitioner; Visit Provider Orthopaedic Surgery
DX: M19.022 Primary osteoarthritis, left elbow (principal)
CPT/HCPCS: 73221